=== PATIENT | male | born 1980 | race Caucasian/White ===

== ENCOUNTER 2021-11-07 21:01 | Inpatient (IN) | payer BC, OTHER ==
[2021-11-07] MEDS ORDERED: Lorazepam 2 MG/ML VIAL ONE ×2 (21:22→22:25)
[2021-11-07] MEDS ORDERED: chlordiazePOXIDE HCl 25 MG CAP PO SCH (21:45)
[2021-11-07] MEDS ORDERED: Potassium Chloride 20 MEQ TAB ONE (22:25)
[2021-11-07 22:30] LABS: ALT (SGPT) 111 U/L (8-55); AST (SGOT) 174 U/L (5-34); Albumin 4.4 g/dL (3.5-5.0); Alkaline Phosphatase 185 U/L (40-110); Anion Gap 23 mmol/L (10-20); BUN (Urea Nitrogen) 25 mg/dL (8.9-20.6); Calc. Creatinine Clearance 0 mL/min (70-130); Calcium 8.9 mg/dL (7.8-10.44); Carbon Dioxide 23 mmol/L (22-29); Chloride 94 mmol/L (98-107); Globulin 2.5 g/dL (2.4-3.5); Glucose 98 mg/dL (70-105); Protein, Total 6.9 g/dL (6.0-8.3); Sodium 137 mmol/L (136-145)
[2021-11-07 22:31] LABS: Acetaminophen Less than 10.0 mcg/mL (10.0-30.0); Alcohol Less than 10 mg/dL (Less than 10); Salicylate Less than 8.0 mg/dL (15.0-30.0)
[2021-11-07] MEDS ORDERED: Lorazepam 2 MG/ML VIAL SLOW IVP PRN (22:41)
[2021-11-07] MEDS ORDERED: Lorazepam 1 MG TAB PO PRN (22:43)
[2021-11-07] MEDS ORDERED: Ondansetron ODT 4 MG TAB PO PRN (22:43)
[2021-11-07] MEDS ORDERED: Ondansetron PF 4 MG/2 ML Vial IVP PRN (22:43)
[2021-11-07] MEDS ORDERED: Electrolyte Replacement Protocol 1 EACH FS PRN (22:45)
[2021-11-07 23:16] LABS: Magnesium 1.8 mg/dL (1.6-2.6); Phosphorus 3.2 mg/dL (2.3-4.7)
[2021-11-08 01:45] VITALS: BMI 29.0
[2021-11-08] MEDS: Lorazepam 1 MG TAB PO SCH ×4 (01:56→18:13)
[2021-11-08] MEDS: Lorazepam 2 MG/ML VIAL SLOW IVP PRN ×2 (02:17→20:59)
[2021-11-08 03:33] LABS: Amphetamine Not Detected (NotDetected); Barbiturates Screen Not Detected (NotDetected); Benzodiazepine Screen Detected (NotDetected); Cocaine Metabolite Screen Not Detected (NotDetected); Methadone Not Detected (NotDetected); Methamphetamine Not Detected (NotDetected); Opiate Screen Not Detected (NotDetected); Oxycodone Screen Not Detected (NotDetected); Phencyclidine (PCP) Not Detected (NotDetected); THC/Cannabinoid Screen Detected (NotDetected); Tricyclic Screen Not Detected (NotDetected)
[2021-11-08] MEDS ORDERED: Magnesium 2 GM/50 ML(in water) 2 GM in Premix Bag 1 BAG IVPB SCH (05:00)
[2021-11-08 05:28] LABS: ALT (SGPT) 102 U/L (8-55); AST (SGOT) 180 U/L (5-34); Albumin 4.1 g/dL (3.5-5.0); Alkaline Phosphatase 168 U/L (40-110); Anion Gap 17 mmol/L (10-20); BUN (Urea Nitrogen) 21 mg/dL (8.9-20.6); Bilirubin, Total 4.7 mg/dL (0.2-1.2); Calc. Creatinine Clearance 154 mL/min (70-130); Carbon Dioxide 25 mmol/L (22-29); Chloride 96 mmol/L (98-107); Globulin 2.8 g/dL (2.4-3.5); Glucose 87 mg/dL (70-105); Protein, Total 6.9 g/dL (6.0-8.3); Sodium 135 mmol/L (136-145)
[2021-11-08 05:58] LABS: #Basophils 0.1 thou/uL (0.0-0.2); #Eosinphils 0.1 thou/uL (0.0-0.7); #Lymphocytes 1.3 thou/uL (1.20-3.40); #Monocytes 0.9 thou/uL (0.11-0.59); #Neutrophils 5.3 thou/uL (1.40-6.50); %Basophils 1.1 % (0.0-1.0); %Eosinophils 1.2 % (0.0-10.0); %Lymphocytes 16.5 % (21.0-51.0); %Neutrophils 69.2 % (42.0-75.0); Hemoglobin 12.2 g/dL (14.0-18.0); Mean Corpuscular HGB CONC 34.7 g/dL (32.0-36.0); Mean Corpuscular Hemoglobin 34.5 pg (27.0-31.0); Mean Corpuscular Volume 99.7 fL (78.0-98.0); Mean Platelet Volume 7.8 fL (7.4-10.4); Platelet Count 118 thou/uL (130-400); Platelet Morphology Comment Appears Decreased; RBC Distribution Width 12.3 % (11.5-14.5); Red Blood Cell (RBC) Count 3.52 mill/uL (4.70-6.10); White Blood Cell (WBC) Count 7.6 thou/uL (4.8-10.8)
[2021-11-08] MEDS ORDERED: Potassium Chloride 20 MEQ in Premix Bag 1 BAG IVPB SCH (08:00)
[2021-11-08] MEDS ORDERED: Potassium Chloride 20 MEQ TAB PO SCH (09:15)
[2021-11-08 11:59] LABS: Syphilis Antibody Nonreactive (Nonreactive); Syphilis Antibody Index 0.03 S/CO (<1.00 Non-Reactive)
[2021-11-08] MEDS ORDERED: Multivitamins, Adult 10 ML, Folic Acid 1 MG, Thiamine HCl 100 MG in Dextrose 5 %-0.45 %... IV SCH (20:00)
[2021-11-08] MEDS: Famotidine 20 MG TAB PO SCH (20:59)
[2021-11-08] MEDS ORDERED: Lorazepam 1 MG TAB PO PRN (22:43)
[2021-11-09] MEDS: Lorazepam 1 MG TAB PO SCH ×3 (00:23→12:41)
[2021-11-09 05:13] LABS: Anion Gap 13 mmol/L (10-20); BUN (Urea Nitrogen) 9 mg/dL (8.9-20.6); Calc. Creatinine Clearance 176 mL/min (70-130); Calcium 8.9 mg/dL (7.8-10.44); Carbon Dioxide 29 mmol/L (22-29); Chloride 97 mmol/L (98-107); Glucose 90 mg/dL (70-105); Sodium 136 mmol/L (136-145)
[2021-11-09 05:33] LABS: Potassium 2.9 mmol/L (3.5-5.1)
[2021-11-09] MEDS: Potassium Chloride 20 MEQ TAB PO SCH ×2 (05:58→09:27)
[2021-11-09] MEDS ORDERED: Potassium Chloride 20 MEQ in Premix Bag 1 BAG IVPB SCH (07:00)
[2021-11-09] MEDS ORDERED: Magnesium 2 GM/50 ML(in water) 2 GM in Premix Bag 1 BAG IVPB SCH (07:00)
[2021-11-09] MEDS: Famotidine 20 MG TAB PO SCH (08:55)
[2021-11-09] MEDS ORDERED: Multivit, Therapeutic 1 TAB PO SCH (09:00)
[2021-11-09] MEDS ORDERED: Thiamine 100 MG TAB PO SCH (09:00)
[2021-11-09] MEDS ORDERED: Folic Acid 1 MG TAB PO SCH (09:00)
[2021-11-09 11:51] VITALS: BP 131/84; TEMP 98.6
[2021-11-09] MEDS ORDERED: Lorazepam 1 MG TAB PO PRN (22:43)
[2021-11-09] MEDS ORDERED: Lorazepam 0.5 MG TAB PO SCH (22:45)
[2021-11-10] MEDS ORDERED: Lorazepam 0.5 MG TAB PO PRN (22:43)
== END 2021-11-09 13:30 | disposition home or self-care (01) | DRG 897 ==
LOC: ERS 21:01 → 2NO 22:43
PROVIDERS: ADMIT Family Medicine; ATTEND Internal Medicine
DX: F10.239 Alcohol dependence with withdrawal, unspecified (principal); E87.6 Hypokalemia; R56.9 Unspecified convulsions; I10 Essential (primary) hypertension; K70.10 Alcoholic hepatitis without ascites; E83.42 Hypomagnesemia; D69.6 Thrombocytopenia, unspecified; F12.99 Cannabis use, unspecified with unspecified cannabis-induced disorder; Z20.822 Contact with and (suspected) exposure to COVID-19; Z91.81 History of falling
CPT/HCPCS: 36415; 80048; 80053; 80306; 80307; 83735; 84100; 85025; 86780; 96365; 96366; 96375; 96376; J2060; J3475; J3480; U0003; U0005